=== PATIENT | female | born 1960 | race Caucasian/White ===

== ENCOUNTER → 2017-02-08 | Outpatient (CLI) | payer BC ==
[~2017-02-08] MED LIST: CIPRO500 MG PO; NORFLEX100 MG PO; PREDNISONE10 MG PO; TERAZOSIN HCL5 M1 PO; VICODIN ES 7501 TAB PO
== END | disposition home or self-care (01) ==
LOC: MAMMO 08:30
DX: Z12.31 Encounter for screening mammogram for malignant neoplasm of breast (principal)

== ENCOUNTER → 2018-02-26 | Outpatient (CLI) | payer BC ==
[2018-02-26 07:25] LABS: BASO # 0.1 10*3/uL (0.0-0.1); BASO % 1.1 % (0.0-1.0); EOS # 0.2 10*3/uL (0.0-0.4); HEMATOCRIT 40.6 % (37.0-47.0); HEMOGLOBIN 13.9 g/dl (12.0-16.0); LYMPH % 34.8 % (27.0-41.0); MEAN CELL VOLUME 93.1 fl (81.0-99.0); MEAN CORPUSCULAR HGB 31.9 pg (27.0-31.0); MEAN CORPUSCULAR HGB CONC 34.2 g/dl (33.0-37.0); MEAN PLATELET VOLUME 9.5 fl (9.6-12.3); MONO # 0.4 10*3/uL (0.1-1.0); MONO % 6.7 % (3.0-9.0); PLATELET COUNT AUTOMATED 315 10*3/uL (130-400); RED BLOOD COUNT 4.36 10*6/uL (4.10-5.10); RED CELL DISTRI WIDTH 11.8 % (0-14.5); WHITE BLOOD COUNT 5.6 10*3/uL (4.8-10.8)
[2018-02-26 07:40] LABS: ALBUMIN 3.7 gm/dl (3.1-4.5); BILIRUBIN, DIRECT < 0.1 mg/dL (0.0-0.2); BUN 10 mg/dl (7-24); CHLORIDE 106 mmol/L (98-107); CHOLESTEROL 259 mg/dL (<200); SODIUM 139 mmol/L (136-145)
[2018-02-26 07:50] LABS: ALKALINE PHOSPHATASE 93 U/L (45-117); CREATININE 0.69 mg/dL (0.55-1.02); HDL CHOLESTEROL 62 mg/dl (40-60); LDL CHOLESTEROL 176 mg/dL (9-159); PHOSPHOROUS 4.1 mg/dL (2.5-4.9); SGOT/AST 21 IU/L (3-35); SGPT/ALT 29 U/L (12-78); THYROID STIM HORMONE (HS) 0.896 uIU/ml (0.358-4.75); TOTAL PROTEIN 7.3 gm/dL (6.4-8.2); TRIGLYCERIDES 103 mg/dl (<150); VLDL CHOLESTEROL 21 mg/dL (6-40)
[2018-02-27 17:06] LABS: CREATININE, UR 66.9 mg/dL (20.0-300.0); PH URINE 5.6 (4.5-8.9)
== END | disposition home or self-care (01) ==
LOC: LAB 06:52
PROVIDERS: Internal Medicine
DX: F11.90 Opioid use, unspecified, uncomplicated (principal); G89.4 Chronic pain syndrome; M54.5 Low back pain; I10 Essential (primary) hypertension; J44.9 Chronic obstructive pulmonary disease, unspecified; F34.1 Dysthymic disorder; Z13.220 Encounter for screening for lipoid disorders

== ENCOUNTER → 2019-06-23 | Outpatient (CLI) | payer BC | END | disposition home or self-care (01) | LOC: MAMMO 16:00 | DX: Z12.31 Encounter for screening mammogram for malignant neoplasm of breast (principal) ==

== ENCOUNTER → 2020-04-28 | Outpatient (CLI) | payer BC ==
[2020-04-28 14:17] LABS: BASO # 0.1 10*3/uL (0.0-0.1); BASO % 0.5 % (0.0-1.0); EOS # 0.1 10*3/uL (0.0-0.4); EOS % 0.7 % (1.0-4.0); HEMATOCRIT 40.7 % (37.0-47.0); LYMPH # 2.5 10*3/uL (1.3-4.4); LYMPH % 25.6 % (27.0-41.0); MEAN CELL VOLUME 94.4 fl (81.0-99.0); MEAN CORPUSCULAR HGB 31.6 pg (27.0-31.0); MEAN CORPUSCULAR HGB CONC 33.4 g/dl (33.0-37.0); MEAN PLATELET VOLUME 9.1 fl (9.6-12.3); MONO # 0.5 10*3/uL (0.1-1.0); MONO % 5.1 % (3.0-9.0); NEUT # 6.7 10*3/uL (2.3-7.9); NEUT % 67.8 % (47.0-73.0); PLATELET COUNT AUTOMATED 342 10*3/uL (130-400); RED BLOOD COUNT 4.31 10*6/uL (4.10-5.10); RED CELL DISTRI WIDTH 11.7 % (0-14.5); WHITE BLOOD COUNT 9.8 10*3/uL (4.8-10.8)
[2020-04-28 14:25] LABS: URINE AMPHETAMINES < 1000 (1000ng/ml); URINE BARBITURATES < 200 (200ng/ml); URINE BENZODIAZEPINES < 200 (200ng/ml); URINE CANNABINOIDS (THC) < 50 (50ng/ml); URINE COCAINE < 300 (300ng/ml); URINE METHADONE < 300 (300ng/ml); URINE OPIATES > 300 (300ng/ml)
[2020-04-28 14:30] LABS: URINE PHENCYCLIDINE < 25 (25ng/ml)
[2020-04-28 14:42] LABS: ALBUMIN 4.1 gm/dl (3.1-4.5); BUN 4 mg/dl (7-24); CHLORIDE 103 mmol/L (98-107); CREATININE 0.69 mg/dL (0.55-1.02); POTASSIUM 3.4 mmol/L (3.5-5.1); SODIUM 134 mmol/L (136-145)
== END | disposition home or self-care (01) ==
LOC: LAB 13:34
PROVIDERS: Internal Medicine
DX: G89.4 Chronic pain syndrome (principal); M54.2 Cervicalgia; I10 Essential (primary) hypertension

== ENCOUNTER 2023-07-30 15:59 | Emergency (ER) | payer BC ==
[~2023-07-30] VITALS: Ht 160 cm; Wt 59.0 kg
== END 2023-07-30 19:51 | disposition left against medical advice (07) ==
LOC: ED 15:59
DX: R42 Dizziness and giddiness (principal); M54.2 Cervicalgia; Z53.21 Procedure and treatment not carried out due to patient leaving prior to being seen by health care provider

== ENCOUNTER 2023-07-31 14:08 | Emergency (ER) | payer BC ==
[~2023-07-31] VITALS: Ht 160 cm; Wt 59.0 kg
== END 2023-07-31 16:15 | disposition left against medical advice (07) ==
LOC: ED 14:08
DX: R51.9 Headache, unspecified (principal); M54.2 Cervicalgia; R07.81 Pleurodynia; Z53.21 Procedure and treatment not carried out due to patient leaving prior to being seen by health care provider

== ENCOUNTER → 2025-03-23 | Outpatient (CLI) | payer BC | END | disposition home or self-care (01) | LOC: MAMMO 16:00 | PROVIDERS: ATTEND Internal Medicine | DX: Z12.31 Encounter for screening mammogram for malignant neoplasm of breast (principal); N64.89 Other specified disorders of breast; R92.313 Mammographic fatty tissue density, bilateral breasts ==